=== PATIENT | male | born 1960 | race Two or more races ===

== ENCOUNTER 2024-08-22 09:24 | Emergency (ER) | payer OTHER ==
[~2024-08-22] VITALS: Ht 175.3 cm; Wt 61.2 kg
[2024-08-22] MEDS ORDERED: ACETAMINOPHEN 325 MG TABLET ONE (09:57)
[2024-08-22] MEDS: ACETAMINOPHEN 325 MG TABLET PO ONE (10:00)
[2024-08-22 10:05] VITALS: TEMP 98.3
[2024-08-22] MEDS ORDERED: IBUP-1955 PO (11:29)
[2024-08-22] MEDS ORDERED: LIDO30AD10 TP (11:29)
[2024-08-22 11:51] VITALS: BP 135/85; O2SAT 98
== END 2024-08-22 11:45 | disposition home or self-care (01) ==
LOC: ER 09:43
DX: S16.1XXA Strain of muscle, fascia and tendon at neck level, initial encounter (principal); S60.011A Contusion of right thumb without damage to nail, initial encounter; S09.90XA Unspecified injury of head, initial encounter; M18.11 Unilateral primary osteoarthritis of first carpometacarpal joint, right hand; I10 Essential (primary) hypertension; E78.5 Hyperlipidemia, unspecified; E03.9 Hypothyroidism, unspecified; Z60.2 Problems related to living alone; V43.52XA Car driver injured in collision with other type car in traffic accident, initial encounter; Y93.89 Activity, other specified; Y92.415 Exit ramp or entrance ramp of street or highway as the place of occurrence of the external cause; Y99.8 Other external cause status
CPT/HCPCS: 70450-TC; 71045-TC; 72125-TC; 73130-TC